=== PATIENT | male | born 1960 | race Two or more races ===

== ENCOUNTER 2020-09-29 11:49 | Outpatient (REF) | payer OTHER, SELFPAY | END 2020-09-29 11:50 | disposition home or self-care (01) | LOC: HO.LAB 11:49 | PROVIDERS: PCP Internal Medicine; Visit Provider Internal Medicine | DX: Z20.828 Contact with and (suspected) exposure to other viral communicable diseases (principal) | CPT/HCPCS: C9803; U0003 ==

== ENCOUNTER 2024-08-04 09:01 | Day surgery (SDC) | payer OTHER, SELFPAY ==
[2024-07-31 14:34] VITALS: BMI 35.7
--- NOTE | 2024-08-01 12:40 | HO.ANESPROP2 ---
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 a significant other at home: Yes (children) Do you presently have visiting nurse or other home services: No Patient Tobacco Use Status: Never used Tobacco Use of substances other than those prescribed or required for medical reasons: No Are you DNR?: No Advance Directives: No Advance Directives Information Provided: Yes Meds Allergies Allergy/AdvReac Type Severity Reaction Status Date / Time Iodinated Contrast Media Allergy Unknown Verified 08/04/24 09:53 [IV Contrast Dye] mushroom AdvReac Intermediate Diarrhea Verified 08/04/24 09:53 Home Medications ?Medication ?Instructions ?Recorded ?Confirmed ?Last Taken ?Type empagliflozin 10 mg tablet 10 mg PO DAILY 07/31/24 08/04/24 07/31/24 History (Jardiance) insulin glargine U-300 conc 300 unit subcut 07/31/24 07/31/24 Unknown History unit/mL (3 mL) subcutaneous pen (Toujeo Max U-300 SoloStar) insulin lispro 100 unit/mL subcut 07/31/24 Unknown History subcutaneous solution (Humalog U-100 Insulin) lisinopril 20 mg tablet 20 mg PO DAILY 07/31/24 08/04/24 Unknown History metoprolol tartrate 50 mg tablet 50 mg PO BID 07/31/24 08/04/24 08/04/24 History rosuvastatin 20 mg tablet 20 mg PO BEDTIME 07/31/24 08/04/24 Unknown History semaglutide 0.25 mg or 0.5 mg (2 0.5 mg subcut QWEEK 07/31/24 08/04/24 07/20/24 History mg/3 mL) subcutaneous pen injector (Ozempic) Exam Height,Weight and Vital Signs: Height 5 ft 8 in Weight 106.594 kg Assessment and Plan Assessment Anesthesia Assessment: Chart Reviewed Documented by User: José Miguel Kyle MD 08/04/24 10:58 HPI - Anesthesia Eval Anesthesia Pre-Procedure Meds If yes to any meds - educate patient: Pt education - increased risk of aspiration and/or euvolemic DKA [facility] Past Medical History Medical History (Updated 07/31/24 @ 14:34 by Evangelina Monreal RN) Sleep apnea Kidney stones Hyperlipidemia HTN (hypertension) Family History Family history of problems with anesthesia: No Surgical History Surgical History H/O circumcision Hx of laparoscopic gastric banding H/O colonoscopy History of Problems with Anesthesia: No Social History Social History Are you a primary post anesthesia care unit nurse to a significant other at home: Yes (children) Do you presently have visiting nurse or other home services: No Patient Tobacco Use Status: Never used Tobacco Use of substances other than those prescribed or required for medical reasons: No Are you DNR?: No Advance Directives: No Advance Directives Information Provided: Yes Meds Allergies Allergy/AdvReac Type Severity Reaction Status Date / Time Iodinated Contrast Media Allergy Unknown Verified 08/04/24 09:53 [IV Contrast Dye] mushroom AdvReac Intermediate Diarrhea Verified 08/04/24 09:53 Home Medications ?Medication ?Instructions ?Recorded ?Confirmed ?Last Taken ?Type empagliflozin 10 mg tablet 10 mg PO DAILY 07/31/24 08/04/24 07/31/24 History (Jardiance) insulin glargine U-300 conc 300 unit subcut 07/31/24 07/31/24 Unknown History unit/mL (3 mL) subcutaneous pen (Toujeo Max U-300 SoloStar) insulin lispro 100 unit/mL subcut 07/31/24 Unknown History subcutaneous solution (Humalog U-100 Insulin) lisinopril 20 mg tablet 20 mg PO DAILY 07/31/24 08/04/24 Unknown History metoprolol tartrate 50 mg tablet 50 mg PO BID 07/31/24 08/04/24 08/04/24 History rosuvastatin 20 mg tablet 20 mg PO BEDTIME 07/31/24 08/04/24 Unknown History semaglutide 0.25 mg or 0.5 mg (2 0.5 mg subcut QWEEK 07/31/24 08/04/24 07/20/24 History mg/3 mL) subcutaneous pen injector (Ozempic) Exam Airway Mallampati Class: II TM Dist: <=3cm Neck ROM: Full Loose/Missing/Broken Teeth: No Heart: ok Lungs: ok Assessment and Plan Assessment Anesthesia Assessment: Anesthesia Plan Discussed Final Anesthetic Review Family History of Problems with Anesthesia: No History of Problems with Anesthesia: No NPO: Yes ASA Class: III Final Preanesthetic Review: No Changes in Pt Med Stat, Meds/Allgs Chart Reviewed, Consent Obtained/Reviewed and Anes Risks/Benef Reviewed Patient Risk: Intermediate Procedure Risk: Low Anesthetic Plan Anesthetic Plan: MAC: and Agree w/ Assess. and Plan Disposition: Standard PACU
[2024-08-04 10:01] VITALS: BP 151/72; PULSE 60; RESP 16; TEMP 36.3; O2SAT 98
[2024-08-04] MEDS: Lactated Ringers 1,000 ML 100 ML IVCONT (10:24)
[2024-08-04 10:28] LABS: Glucose, Whole Blood 79 mg/dL (60-115)
[2024-08-04 11:43] VITALS: BP 109/57; PULSE 61; RESP 18; TEMP 36.2; O2SAT 94
--- NOTE | 2024-08-04 11:45 | PM.OP ---
Brief Operative Note Date of Service: 08/04/24 Pre-op diagnosis: Screening Post-op diagnosis: other (Colon polyp) Procedure: Colonoscopy to the cecum and TI with hot snare polypectomy x 1 Surgeon: Robert Gongora MD Anesthesia: MAC Was an [employer] Techn[employer] used for this Procedure?: No Estimated blood loss (mL): 0 Pathology: other (A. Transverse colon polyp) Condition: stable Disposition: PACU
[2024-08-04 11:55] VITALS: BP 133/55; PULSE 67; RESP 18; O2SAT 97
[2024-08-04 12:10] VITALS: BP 151/68; PULSE 61; RESP 18; TEMP 36.1; O2SAT 96
[2024-08-04 12:19] LABS: Glucose, Whole Blood 87 mg/dL (60-115)
[2024-08-04 12:19] LABS: Glucose, Whole Blood 67 mg/dL (60-115)
--- NOTE | 2024-08-04 13:03 | OP_ITS ---
DATE OF SERVICE: 08/04/2024 SURGEON: Robert Gongora MD INDICATIONS: The patient presents for evaluation of personal history of tubular adenoma of the colon and need for colorectal cancer screening. Full consent was obtained from him for this, including risks of bleeding and perforation. PREOPERATIVE DIAGNOSIS: POSTOPERATIVE DIAGNOSIS: PROCEDURE PERFORMED: Colonoscopy to the cecum and terminal ileum with hot snare polypectomy. ESTIMATED BLOOD LOSS: COMPLICATIONS: ANESTHESIA: Monitored anesthesia care. ASSISTANTS: SPECIMENS: PREOPERATIVE DIAGNOSES: Personal history of tubular adenoma of the colon and colorectal cancer screening. POSTOPERATIVE DIAGNOSES: Personal history of tubular adenoma of the colon and colorectal cancer screening, colon polyp, diverticulosis, and internal hemorrhoids. DESCRIPTION OF PROCEDURE: The patient was placed in the left lateral decubitus position. The digital rectal exam revealed no abnormalities. The Olympus video pediatric colonoscope was entered into the rectum and advanced easily to the cecum. Once in the cecum, I visualized a normal-appearing cecal pouch with appendiceal orifice and a normal-appearing ileocecal valve. The entire cecum and ileocecal valve appeared normal. The terminal ileum was cannulated and appeared normal. The scope was withdrawn back in the colon. The scope was slowly withdrawn assessing all mucosal surfaces carefully. Preparation was excellent. In the transverse colon was an approximately 6 to 8 mm somewhat ulcerated flat polyp, which was removed by hot snare polypectomy and recovered by suction. The polypectomy site appeared clean, without any sign of residual polyp nor bleeding. I did not visualize any other polyps, colitis, nor angiodysplasia. There was a mild amount of sigmoid diverticulosis. In the rectum, scope was retroflexed visualizing internal hemorrhoids, but no other pathology. The rectal mucosa appeared normal. The scope was straightened and withdrawn from the patient. He tolerated the procedure well and was returned to recovery area in stable condition. IMPRESSION: 1. Colon polyp. 2. Diverticulosis. 3. Internal hemorrhoids. PLAN: The results of the pathology will be checked. I would recommend a repeat colonoscopy in 5 years for further screening. He was advised not to use any aspirin and NSAIDs for 1 week. MD DYLAN Morley/NAYANA / [id number]
== END 2024-08-04 13:01 | disposition home or self-care (01) ==
PROVIDERS: PCP Internal Medicine; Visit Provider Internal Medicine
PROC: 0DJD8ZZ Inspection of Lower Intestinal Tract, Via Natural or Artificial Opening Endoscopic (ICD-10-PCS; CPT 45378; principal; 2024-08-04 10:30)
DX: Z12.11 Encounter for screening for malignant neoplasm of colon (principal); K63.5 Polyp of colon; K57.30 Diverticulosis of large intestine without perforation or abscess without bleeding; K64.8 Other hemorrhoids; Z86.010 Personal history of colon polyps; I10 Essential (primary) hypertension; E78.5 Hyperlipidemia, unspecified; G47.30 Sleep apnea, unspecified; Z99.89 Dependence on other enabling machines and devices
CPT/HCPCS: 45385; 82947; 88305; J2704